=== PATIENT | male | born 1955 | race Two or more races ===

== ENCOUNTER 2021-10-01 05:23 | Inpatient (IN) | payer MEDICARE, MEDICAID ==
[~2021-10-01] VITALS: Ht 170.2 cm; Wt 65.2 kg
[2021-10-01 05:45] LABS: Basophils # (auto) 0.1 10 ^3/uL (0-0.2); Monocytes # (auto) 0.9 10 ^3/uL (0-1.3); Monocytes % (auto) 5.5 % (0.0-12.0)
[2021-10-01] MEDS ORDERED: NITROGLYCERIN 2% OINT 1GM PKG TD ONE (05:45)
[2021-10-01] MEDS ORDERED: ALBUTEROL SULF 2.5 MG/0.5ML(0.5%) NEB SOLN NEB ONE ×2 (05:45→06:15)
[2021-10-01] MEDS ORDERED: FUROSEMIDE 100 MG/10ML VIAL IV ONE (05:45)
[2021-10-01] MEDS ORDERED: methylPREDNISolone SOD SUCC 125 MG/2 ML VL IV ONE (05:45)
[2021-10-01 05:46] LABS: Basophils % (auto) 0.6 % (0.0-2.0); Eosinophils # (auto) 1.1 10 ^3/uL (0-0.8); Hematocrit 52.6 % (41.0-53.0); Hemoglobin 17.7 g/dL (13.5-17.5); Lymphocytes # (auto) 2.8 10 ^3/uL (0.4-5.4); Lymphocytes % (auto) 18.3 % (10.0-50.0); Mean Corpuscular Hemoglobin 28.8 pg (28.0-32.0); Mean Corpuscular Hgb Conc. 33.6 g/dL (32.0-36.0); Mean Corpuscular Volume 85.7 fL (80.0-100.0); Neutrophils # (auto) 10.6 10 ^3/uL (1.6-8.6); Neutrophils % (auto) 68.6 % (37.0-80.0); Nucleated Red Blood Cells % 0.1 %; Red Blood Cells 6.13 10^6/uL (4.5-5.90); Red Cell Distribution Width 16.4 % (11.8-14.3); White Blood Cell 15.5 10^3/uL (4.4-10.8)
[2021-10-01 06:04] LABS: Albumin 4.3 g/dL (3.4-5.0); Calcium 9.6 mg/dL (8.5-10.1); INR 0.97 (0.9-1.15); Magnesium 2.6 mg/dL (1.6-2.6); Partial Thromboplastin Time 24.7 sec (23.6-33.0); Potassium 4.6 mmol/L (3.5-5.1)
[2021-10-01 06:07] LABS: BUN/Creatinine Ratio 9.8; Bilirubin, Total 0.4 mg/dL (0.2-1.0); Total Protein 8.1 g/dL (6.4-8.2)
[2021-10-01] MEDS ORDERED: AZITHROMYCIN 500MG/ 250ML 250 ML IV ONE (06:45)
[2021-10-01 07:22] VITALS: BP 157/95
[2021-10-01 08:07] VITALS: BP 157/95
[2021-10-01] MEDS ORDERED: NITROGLYCERIN 0.4 MG SL TAB SL PRN (10:00)
[2021-10-01] MEDS ORDERED: SODIUM CHLORIDE 0.9% 1,000 ML IV ONE ×2 (10:00)
[2021-10-01] MEDS ORDERED: MORPHINE SULFATE INJECTION 2 MG/ML SYRG IV PRN ×2 (10:00)
[2021-10-01] MEDS ORDERED: cefTRIAXone 1GM/50ML D5W 50 ML IV ONE ×2 (10:00→16:15)
[2021-10-01] MEDS ORDERED: IPRATROPIUM BROM 0.5 MG/2.5ML INH SOL NEB PRN ×2 (10:00→12:30)
[2021-10-01] MEDS ORDERED: ALBUTEROL SULF 2.5 MG/0.5ML(0.5%) NEB SOLN NEB PRN ×2 (10:00→12:30)
[2021-10-01] MEDS ORDERED: ONDANSETRON HCL 4 MG/2 ML VIAL IV PRN (10:00)
[2021-10-01] MEDS ORDERED: hydrALAZINE HCL 20 MG/ML VL IV PRN (10:00)
[2021-10-01 10:33] LABS: Alcohol, Urine < 3.0 mg/dL (0-10); Amphetamine Screen, Urine NEGATIVE (NEGATIVE); Barbiturate Scree,Urine NEGATIVE (NEGATIVE); Benzodiazephine Screen, Urine NEGATIVE (NEGATIVE); Cannabinoid Screen, Urine NEGATIVE (NEGATIVE); Cocaine Screen, Urine NEGATIVE (NEGATIVE); Opiate Scree,Urine NEGATIVE (NEGATIVE); Phencyclidine Screen, Urine NEGATIVE (NEGATIVE)
[2021-10-01 10:50] LABS: Urine Bacteria NONE SEEN /hpf (None Seen); Urine Blood 1+ /uL (Negative); Urine Specific Gravity 1.012 (1.001-1.035); Urine WBC 1 /hpf (0 - 3)
[2021-10-01 12:00] VITALS: BP 121/81
[2021-10-01] MEDS ORDERED: FUROSEMIDE 40 MG/4 ML VIAL IV ONE (12:15)
[2021-10-01 12:24] LABS: Cholesterol 208 mg/dL (< 200); Triglycerides 72 mg/dL (< 150)
[2021-10-01 12:26] LABS: HDL Cholesterol 90 mg/dL (40-59); LDL Cholesterol 96 mg/dL (< 100)
[2021-10-01] MEDS ORDERED: APIX5TAB PO (12:46)
[2021-10-01] MEDS ORDERED: ALBUTEROL SULF 2.5 MG/0.5ML(0.5%) NEB SOLN ONE (12:52)
[2021-10-01] MEDS ORDERED: IPRATROPIUM BROM 0.5 MG/2.5ML INH SOL ONE (12:52)
[2021-10-01 13:00] VITALS: BP 129/80
[2021-10-01] MEDS: ENOXAPARIN SOD 40 MG/0.4 ML SYRINGE SC SCH (15:48)
[2021-10-01] MEDS: NICOTINE 14 MG/24HR TOPICAL PATCH TD SCH (15:54)
[2021-10-01 17:00] VITALS: BP 120/82
[2021-10-01] MEDS ORDERED: BUDESONIDE (INHALATION) 0.5 MG/2 ML NEB NEB ONE (17:00)
[2021-10-01] MEDS ORDERED: LORazepam 2MG/ML-1ML VIAL IV PRN (17:00)
[2021-10-01] MEDS: ALBUTEROL SULF 2.5 MG/0.5ML(0.5%) NEB SOLN NEB PRN ×2 (17:55→22:10)
[2021-10-01] MEDS: IPRATROPIUM BROM 0.5 MG/2.5ML INH SOL NEB PRN ×2 (17:55→22:10)
[2021-10-01] MEDS: methylPREDNISolone SOD SUCC 40 MG/ML VL IV SCH (21:56)
[2021-10-01 22:00] VITALS: BP 135/75
[2021-10-02 05:00] VITALS: BP 119/71
[2021-10-02] MEDS: ALBUTEROL SULF 2.5 MG/0.5ML(0.5%) NEB SOLN NEB PRN ×3 (06:12→22:13)
[2021-10-02] MEDS: BUDESONIDE (INHALATION) 0.5 MG/2 ML NEB NEB SCH ×2 (06:13→22:12)
[2021-10-02] MEDS: IPRATROPIUM BROM 0.5 MG/2.5ML INH SOL NEB PRN ×3 (06:13→22:13)
[2021-10-02 08:30] VITALS: BP 125/78
[2021-10-02 09:00] VITALS: BP 125/78
[2021-10-02 09:18] LABS: Basophils # (auto) 0 10 ^3/uL (0-0.2); Basophils % (auto) 0.2 % (0.0-2.0); Eosinophils # (auto) 0 10 ^3/uL (0-0.8); Hematocrit 49.2 % (41.0-53.0); Lymphocytes # (auto) 0.8 10 ^3/uL (0.4-5.4); Mean Corpuscular Hemoglobin 27.5 pg (28.0-32.0); Mean Corpuscular Hgb Conc. 32.5 g/dL (32.0-36.0); Mean Corpuscular Volume 84.4 fL (80.0-100.0); Monocytes # (auto) 0.9 10 ^3/uL (0-1.3); Monocytes % (auto) 4.6 % (0.0-12.0); Neutrophils # (auto) 17.6 10 ^3/uL (1.6-8.6); Neutrophils % (auto) 91.2 % (37.0-80.0); Nucleated Red Blood Cells % 0.1 %; Red Blood Cells 5.83 10^6/uL (4.5-5.90); White Blood Cell 19.3 10^3/uL (4.4-10.8)
[2021-10-02 09:41] LABS: Potassium 4.4 mmol/L (3.5-5.1)
[2021-10-02 09:48] LABS: Albumin 3.4 g/dL (3.4-5.0); BUN/Creatinine Ratio 12.7; Bilirubin, Total 0.3 mg/dL (0.2-1.0)
[2021-10-02] MEDS: ENOXAPARIN SOD 40 MG/0.4 ML SYRINGE SC SCH (09:51)
[2021-10-02] MEDS: NICOTINE 14 MG/24HR TOPICAL PATCH TD SCH (09:56)
[2021-10-02] MEDS: cefTRIAXone 1GM/50ML D5W 50 ML IV SCH (09:57)
[2021-10-02] MEDS: methylPREDNISolone SOD SUCC 40 MG/ML VL IV SCH ×2 (09:57→22:29)
[2021-10-02] MEDS: AZITHROMYCIN 500MG/ 250ML 250 ML IV SCH (10:39)
[2021-10-02] MEDS ORDERED: FUROSEMIDE 20 MG/2 ML VIAL IV ONE (12:45)
[2021-10-02 12:55] VITALS: BP 115/76
[2021-10-02 17:00] VITALS: BP 142/72
[2021-10-02 22:00] VITALS: BP 119/75
[2021-10-03 05:00] VITALS: BP 133/87
[2021-10-03 05:55] LABS: Basophils # (auto) 0 10 ^3/uL (0-0.2); Basophils % (auto) 0.1 % (0.0-2.0); Eosinophils # (auto) 0 10 ^3/uL (0-0.8); Hematocrit 49.4 % (41.0-53.0); Hemoglobin 16.4 g/dL (13.5-17.5); Lymphocytes # (auto) 0.6 10 ^3/uL (0.4-5.4); Lymphocytes % (auto) 3.5 % (10.0-50.0); Mean Corpuscular Hemoglobin 28.1 pg (28.0-32.0); Mean Corpuscular Hgb Conc. 33.3 g/dL (32.0-36.0); Mean Corpuscular Volume 84.5 fL (80.0-100.0); Monocytes # (auto) 0.4 10 ^3/uL (0-1.3); Monocytes % (auto) 2.3 % (0.0-12.0); Neutrophils # (auto) 14.8 10 ^3/uL (1.6-8.6); Neutrophils % (auto) 94.1 % (37.0-80.0); Nucleated Red Blood Cells % 0.1 %; Red Blood Cells 5.84 10^6/uL (4.5-5.90); White Blood Cell 15.7 10^3/uL (4.4-10.8)
[2021-10-03 06:15] LABS: Potassium 4.5 mmol/L (3.5-5.1)
[2021-10-03 06:27] LABS: BUN/Creatinine Ratio 16.9; Calcium 9.2 mg/dL (8.5-10.1)
[2021-10-03] MEDS: IPRATROPIUM BROM 0.5 MG/2.5ML INH SOL NEB PRN ×2 (08:58→19:06)
[2021-10-03] MEDS: BUDESONIDE (INHALATION) 0.5 MG/2 ML NEB NEB SCH ×2 (08:58→19:06)
[2021-10-03] MEDS: ALBUTEROL SULF 2.5 MG/0.5ML(0.5%) NEB SOLN NEB PRN (08:58)
[2021-10-03 09:00] VITALS: BP 129/78
[2021-10-03] MEDS: ENOXAPARIN SOD 40 MG/0.4 ML SYRINGE SC SCH (10:22)
[2021-10-03] MEDS: AZITHROMYCIN 500MG/ 250ML 250 ML IV SCH (10:23)
[2021-10-03] MEDS: methylPREDNISolone SOD SUCC 40 MG/ML VL IV SCH ×2 (10:23→21:50)
[2021-10-03] MEDS: cefTRIAXone 1GM/50ML D5W 50 ML IV SCH (10:23)
[2021-10-03] MEDS: NICOTINE 14 MG/24HR TOPICAL PATCH TD SCH (10:24)
[2021-10-03 13:00] VITALS: BP 119/68
[2021-10-03 17:00] VITALS: BP 127/76
[2021-10-03 20:00] VITALS: BP 123/76
[2021-10-03 22:00] VITALS: BP 123/76
[2021-10-04] VITALS (7 sets, daily range): BP systolic 101–142; BP diastolic 61–86
[2021-10-04] MEDS: IPRATROPIUM BROM 0.5 MG/2.5ML INH SOL NEB PRN ×2 (03:49→22:29)
[2021-10-04] MEDS: ALBUTEROL SULF 2.5 MG/0.5ML(0.5%) NEB SOLN NEB PRN ×2 (03:49→22:29)
[2021-10-04] MEDS: AZITHROMYCIN 500MG/ 250ML 250 ML IV SCH (08:58)
[2021-10-04] MEDS: methylPREDNISolone SOD SUCC 40 MG/ML VL IV SCH (08:58)
[2021-10-04] MEDS: ENOXAPARIN SOD 40 MG/0.4 ML SYRINGE SC SCH (08:58)
[2021-10-04] MEDS: cefTRIAXone 1GM/50ML D5W 50 ML IV SCH (08:58)
[2021-10-04] MEDS: BUDESONIDE (INHALATION) 0.5 MG/2 ML NEB NEB SCH ×2 (09:54→22:29)
[2021-10-04] MEDS: NICOTINE 14 MG/24HR TOPICAL PATCH TD SCH (10:30)
[2021-10-05 05:26] VITALS: BP 146/74
[2021-10-05] MEDS: BUDESONIDE (INHALATION) 0.5 MG/2 ML NEB NEB SCH (06:00)
[2021-10-05 06:42] LABS: Basophils # (auto) 0 10 ^3/uL (0-0.2); Basophils % (auto) 0.3 % (0.0-2.0); Eosinophils # (auto) 0 10 ^3/uL (0-0.8); Eosinophils % (auto) 0.1 % (0.0-7.0); Hematocrit 45.2 % (41.0-53.0); Hemoglobin 15.2 g/dL (13.5-17.5); Lymphocytes # (auto) 1.6 10 ^3/uL (0.4-5.4); Lymphocytes % (auto) 11.1 % (10.0-50.0); Mean Corpuscular Hemoglobin 28.5 pg (28.0-32.0); Mean Corpuscular Hgb Conc. 33.7 g/dL (32.0-36.0); Mean Corpuscular Volume 84.7 fL (80.0-100.0); Monocytes # (auto) 1.2 10 ^3/uL (0-1.3); Monocytes % (auto) 8.6 % (0.0-12.0); Neutrophils # (auto) 11.4 10 ^3/uL (1.6-8.6); Neutrophils % (auto) 79.9 % (37.0-80.0); Nucleated Red Blood Cells % 0.1 %; Red Blood Cells 5.34 10^6/uL (4.5-5.90); Red Cell Distribution Width 15.9 % (11.8-14.3); White Blood Cell 14.3 10^3/uL (4.4-10.8)
[2021-10-05 07:02] LABS: BUN/Creatinine Ratio 15.9; Calcium 8.6 mg/dL (8.5-10.1); Potassium 3.9 mmol/L (3.5-5.1)
[2021-10-05 09:23] VITALS: BP 129/81
[2021-10-05] MEDS: AZITHROMYCIN 500MG/ 250ML 250 ML IV SCH (09:56)
[2021-10-05] MEDS: ENOXAPARIN SOD 40 MG/0.4 ML SYRINGE SC SCH (09:56)
[2021-10-05] MEDS: NICOTINE 14 MG/24HR TOPICAL PATCH TD SCH (09:58)
[2021-10-05] MEDS ORDERED: methylPREDNISolone SOD SUCC 40 MG/ML VL IV SCH (10:00)
[2021-10-05] MEDS ORDERED: PRED20TA2 PO (11:18)
[2021-10-05] MEDS ORDERED: ALB5IS NEB (11:18)
[2021-10-05 13:00] VITALS: BP 125/72
[2021-10-05 13:03] VITALS: BP 129/81
== END 2021-10-05 15:25 | disposition home or self-care (01) | DRG 140 ==
LOC: EDBD 05:23 → ER 05:23 → TELE-WESTW 09:59 → ER 11:20
PROVIDERS: ADMIT Registered Nurse; ATTEND Internal Medicine Pulmonary Disease
PROC: 5A09357 Assistance with Respiratory Ventilation, Less than 24 Consecutive Hours, Continuous Positive Airway Pressure (ICD-10-PCS; principal; 2021-10-01)
DX: J44.1 Chronic obstructive pulmonary disease with (acute) exacerbation (principal); J96.01 Acute respiratory failure with hypoxia; N17.9 Acute kidney failure, unspecified; F17.210 Nicotine dependence, cigarettes, uncomplicated; Z20.822 Contact with and (suspected) exposure to COVID-19
CPT/HCPCS: 36415; 36600; 71045; 71250; 80048; 80053; 80061; 80307; 81001; 82805; 83036; 83735; 83880; 84484; 85025; 85379; 85610; 85730; 87040; 87804; 93005; 94002; 94640; 94660; 96365; 96375; 97163; G0378; J0696

== ENCOUNTER 2021-12-31 15:05 | Emergency (ER) | payer MEDICARE, MEDICAID ==
[~2021-12-31] VITALS: Ht 165.1 cm; Wt 74.0 kg
[~2021-12-31 15:05] MED LIST: ALB5IS NEB; APIX5TAB PO; PRED20TA2 PO
[2021-12-31 15:56] LABS: Basophils # (auto) 0.1 10 ^3/uL (0-0.2); Eosinophils # (auto) 0.7 10 ^3/uL (0-0.8); Hemoglobin 15.4 g/dL (13.5-17.5); Nucleated Red Blood Cells % 0.1 %
[2021-12-31 16:01] LABS: Basophils % (auto) 0.5 % (0.0-2.0); Eosinophils % (auto) 6.2 % (0.0-7.0); Hematocrit 48.4 % (41.0-53.0); Lymphocytes # (auto) 1.6 10 ^3/uL (0.4-5.4); Lymphocytes % (auto) 14.9 % (10.0-50.0); Mean Corpuscular Hemoglobin 27.3 pg (28.0-32.0); Mean Corpuscular Hgb Conc. 31.9 g/dL (32.0-36.0); Mean Corpuscular Volume 85.5 fL (80.0-100.0); Monocytes # (auto) 0.9 10 ^3/uL (0-1.3); Neutrophils # (auto) 7.6 10 ^3/uL (1.6-8.6); Neutrophils % (auto) 70.4 % (37.0-80.0); Red Blood Cells 5.66 10^6/uL (4.5-5.90); Red Cell Distribution Width 16.8 % (11.8-14.3); White Blood Cell 10.8 10^3/uL (4.4-10.8)
[2021-12-31] MEDS ORDERED: ALBUTEROL SULF 2.5 MG/0.5ML(0.5%) NEB SOLN NEB ONE (16:15)
[2021-12-31] MEDS ORDERED: IPRATROPIUM BROM 0.5 MG/2.5ML INH SOL NEB ONE (16:15)
[2021-12-31] MEDS ORDERED: methylPREDNISolone SOD SUCC 125 MG/2 ML VL IV ONE (16:15)
[2021-12-31 16:23] LABS: Albumin 3.5 g/dL (3.4-5.0); BUN/Creatinine Ratio 7.9; Calcium 8.9 mg/dL (8.5-10.1); Potassium 4.9 mmol/L (3.5-5.1)
[2021-12-31 16:26] LABS: Bilirubin, Total 0.3 mg/dL (0.2-1.0); Total Protein 6.7 g/dL (6.4-8.2)
[2021-12-31] MEDS ORDERED: RESPMIS2 XX (17:36)
[2021-12-31] MEDS ORDERED: PRED20TA2 PO (17:36)
[2021-12-31] MEDS ORDERED: IPRA0.00 IN (17:37)
[2021-12-31 17:51] VITALS: BP 154/83
== END 2021-12-31 17:58 | disposition home or self-care (01) ==
LOC: ER 15:05 → EDBD 15:05 → ER 17:58
DX: J44.1 Chronic obstructive pulmonary disease with (acute) exacerbation (principal); Z20.822 Contact with and (suspected) exposure to COVID-19
CPT/HCPCS: 36415; 71045; 80053; 83880; 84484; 85025; 87426; 93005; 96374; 99285; J2930; J7644

== ENCOUNTER 2022-02-15 00:40 | Emergency (ER) | payer MEDICARE, MEDICAID ==
[~2022-02-15] VITALS: Ht 162.6 cm; Wt 63.5 kg
[~2022-02-15 00:40] MED LIST changes: +IPRA0.00 IN; +RESPMIS2 XX
[2022-02-15] MEDS ORDERED: ALBUTEROL SULF 2.5 MG/0.5ML(0.5%) NEB SOLN NEB ONE ×2 (00:45→03:45)
[2022-02-15] MEDS ORDERED: methylPREDNISolone SOD SUCC 125 MG/2 ML VL IV ONE (00:45)
[2022-02-15 01:26] LABS: INR 0.95 (0.9-1.15); Partial Thromboplastin Time 24.4 sec (24.6-33.4)
[2022-02-15 01:28] LABS: Albumin 3.8 g/dL (3.4-5.0); BUN/Creatinine Ratio 10.2; Calcium 9.1 mg/dL (8.5-10.1); Magnesium 2.5 mg/dL (1.6-2.6); Potassium 4.9 mmol/L (3.5-5.1)
[2022-02-15 01:31] LABS: Bilirubin, Total 0.4 mg/dL (0.2-1.0); Total Protein 7.5 g/dL (6.4-8.2)
[2022-02-15 01:59] LABS: Basophils # (auto) 0.1 10 ^3/uL (0-0.2); Basophils % (auto) 0.7 % (0.0-2.0); Eosinophils # (auto) 0.8 10 ^3/uL (0-0.8); Eosinophils % (auto) 8.5 % (0.0-7.0); Hematocrit 50.6 % (41.0-53.0); Hemoglobin 16.3 g/dL (13.5-17.5); Lymphocytes # (auto) 2.3 10 ^3/uL (0.4-5.4); Lymphocytes % (auto) 23.5 % (10.0-50.0); Mean Corpuscular Hemoglobin 27.5 pg (28.0-32.0); Mean Corpuscular Hgb Conc. 32.3 g/dL (32.0-36.0); Mean Corpuscular Volume 85.3 fL (80.0-100.0); Monocytes % (auto) 10.2 % (0.0-12.0); Neutrophils # (auto) 5.5 10 ^3/uL (1.6-8.6); Neutrophils % (auto) 57.1 % (37.0-80.0); Nucleated Red Blood Cells % 0.1 %; Red Blood Cells 5.92 10^6/uL (4.5-5.90); Red Cell Distribution Width 16.1 % (11.8-14.3); White Blood Cell 9.6 10^3/uL (4.4-10.8)
[2022-02-15] MEDS ORDERED: IPRATROPIUM BROM 0.5 MG/2.5ML INH SOL NEB ONE (03:45)
[2022-02-15] MEDS ORDERED: MAGNESIUM SULFATE 1GM/100ML 100 ML IV ONE (03:45)
[2022-02-15 05:03] VITALS: BP 113/54
[2022-02-15] MEDS ORDERED: PRED1PAK9 PO (05:06)
[2022-02-15] MEDS ORDERED: ALBU0.084 NEB (05:08)
== END 2022-02-15 06:55 | disposition home or self-care (01) ==
LOC: ER 00:40 → EDBD 00:40 → ER 06:55
DX: J44.1 Chronic obstructive pulmonary disease with (acute) exacerbation (principal); I10 Essential (primary) hypertension; F17.210 Nicotine dependence, cigarettes, uncomplicated
CPT/HCPCS: 36415; 71045; 80053; 83735; 83880; 84484; 85025; 85379; 85610; 85730; 93005; 94640; 94644; 96365; 96375; 99285; J2930; J3475; J7644

== ENCOUNTER 2022-03-07 07:09 | Emergency (ER) | payer MEDICARE, MEDICAID ==
[~2022-03-07] VITALS: Ht 165.1 cm; Wt 81.1 kg
[~2022-03-07 07:09] MED LIST changes: +ALBU0.084 NEB; +PRED1PAK9 PO
[2022-03-07 07:18] VITALS: BP 126/80
[2022-03-07] MEDS ORDERED: IPRATROPIUM BROM 0.5 MG/2.5ML INH SOL NEB ONE (08:45)
[2022-03-07] MEDS ORDERED: ALBUTEROL SULF 2.5 MG/0.5ML(0.5%) NEB SOLN NEB ONE (08:45)
[2022-03-07] MEDS ORDERED: methylPREDNISolone SOD SUCC 125 MG/2 ML VL IV ONE (08:45)
[2022-03-07 09:47] LABS: Basophils # (auto) 0.1 10 ^3/uL (0-0.2); Eosinophils # (auto) 0.5 10 ^3/uL (0-0.8); Hemoglobin 16.9 g/dL (13.5-17.5); Monocytes # (auto) 0.6 10 ^3/uL (0-1.3); Neutrophils % (auto) 79.7 % (37.0-80.0)
[2022-03-07 09:48] LABS: Basophils % (auto) 0.7 % (0.0-2.0); Eosinophils % (auto) 4.6 % (0.0-7.0); Hematocrit 52.3 % (41.0-53.0); Lymphocytes # (auto) 1.1 10 ^3/uL (0.4-5.4); Lymphocytes % (auto) 9.6 % (10.0-50.0); Mean Corpuscular Hemoglobin 27.6 pg (28.0-32.0); Mean Corpuscular Hgb Conc. 32.2 g/dL (32.0-36.0); Mean Corpuscular Volume 85.6 fL (80.0-100.0); Monocytes % (auto) 5.4 % (0.0-12.0); Neutrophils # (auto) 8.9 10 ^3/uL (1.6-8.6); Nucleated Red Blood Cells % 0.3 %; Red Blood Cells 6.12 10^6/uL (4.5-5.90); Red Cell Distribution Width 15.7 % (11.8-14.3); White Blood Cell 11.1 10^3/uL (4.4-10.8)
[2022-03-07 10:22] LABS: Alanine Aminotransferase 24 U/L (16-61); Alkaline Phosphatase 129 U/L (45-117); Anion Gap 10 (5-15); Aspartate Aminotransferase 20 U/L (15-37); BUN/Creatinine Ratio 10.1; Blood Urea Nitrogen 11 mg/dL (7-18); Carbon Dioxide 20 mmol/L (21-32); Chloride 112 mmol/L (98-107); GFR African American 87 mL/min; GFR Non-African American 72 mL/min; Glucose 80 mg/dL (74-106); Potassium 4.2 mmol/L (3.5-5.1); Sodium 142 mmol/L (136-145)
[2022-03-07 10:23] LABS: Albumin 3.8 g/dL (3.4-5.0); Bilirubin, Total 0.5 mg/dL (0.2-1.0); Total Protein 7.7 g/dL (6.4-8.2)
== END 2022-03-07 17:03 | disposition left against medical advice (07) ==
LOC: EDBD 07:09 → ER 07:09
DX: J44.1 Chronic obstructive pulmonary disease with (acute) exacerbation (principal); F17.210 Nicotine dependence, cigarettes, uncomplicated; I10 Essential (primary) hypertension; Z53.29 Procedure and treatment not carried out because of patient's decision for other reasons
CPT/HCPCS: 36415; 71045; 80053; 84484; 85025; 85379; 93005; 94640; 99285; J7644

== ENCOUNTER 2022-03-15 00:45 | Inpatient (IN) | payer MEDICARE, MEDICAID ==
[~2022-03-15] VITALS: Ht 172.7 cm; Wt 69.2 kg
[2022-03-15] MEDS ORDERED: TERBUTALINE SULFATE 1 MG/ML 1ML VIAL SC ONE (01:15)
[2022-03-15] MEDS ORDERED: methylPREDNISolone SOD SUCC 125 MG/2 ML VL IV ONE (01:15)
[2022-03-15] MEDS: MAGNESIUM SULFATE 1GM/100ML 100 ML IV SCH ×2 (01:43→02:38)
[2022-03-15 01:46] LABS: Basophils # (auto) 0.1 10 ^3/uL (0-0.2); Basophils % (auto) 1.2 % (0.0-2.0); Eosinophils # (auto) 0.8 10 ^3/uL (0-0.8); Eosinophils % (auto) 9.4 % (0.0-7.0); Hematocrit 48.3 % (41.0-53.0); Hemoglobin 15.9 g/dL (13.5-17.5); Lymphocytes % (auto) 22.8 % (10.0-50.0); Mean Corpuscular Hemoglobin 28.2 pg (28.0-32.0); Mean Corpuscular Hgb Conc. 32.8 g/dL (32.0-36.0); Mean Corpuscular Volume 85.9 fL (80.0-100.0); Monocytes # (auto) 0.8 10 ^3/uL (0-1.3); Monocytes % (auto) 8.7 % (0.0-12.0); Neutrophils % (auto) 57.9 % (37.0-80.0); Nucleated Red Blood Cells % 0.1 %; Red Blood Cells 5.62 10^6/uL (4.5-5.90); Red Cell Distribution Width 15.6 % (11.8-14.3); White Blood Cell 8.7 10^3/uL (4.4-10.8)
[2022-03-15 02:01] LABS: INR 0.99 (0.9-1.15); Partial Thromboplastin Time 26.9 sec (24.6-33.4)
[2022-03-15 02:02] LABS: Albumin 3.5 g/dL (3.4-5.0); BUN/Creatinine Ratio 8.9; Calcium 8.5 mg/dL (8.5-10.1); Magnesium 1.9 mg/dL (1.6-2.6); Potassium 4.5 mmol/L (3.5-5.1)
[2022-03-15 02:04] LABS: Bilirubin, Total 0.4 mg/dL (0.2-1.0); Total Protein 6.7 g/dL (6.4-8.2)
[2022-03-15 02:41] LABS: Urine Bacteria NONE SEEN /hpf (None Seen); Urine Blood Negative /uL (Negative); Urine Specific Gravity 1.018 (1.001-1.035); Urine WBC 1 /hpf (0 - 3)
[2022-03-15] MEDS ORDERED: cefTRIAXone 1GM/50ML D5W 50 ML IV ONE (04:00)
[2022-03-15] MEDS ORDERED: ONDANSETRON HCL 4 MG/2 ML VIAL IV PRN (07:00)
[2022-03-15] MEDS ORDERED: ACETAMINOPHEN 325 MG TAB PO PRN (07:00)
[2022-03-15] MEDS ORDERED: NITROGLYCERIN 0.4 MG SL TAB SL PRN (07:00)
[2022-03-15] MEDS ORDERED: MORPHINE SULFATE INJ 2 MG/ml SYRG IV PRN (07:00)
[2022-03-15] MEDS: ALBUTEROL SULF 2.5 MG/0.5ML(0.5%) NEB SOLN NEB PRN ×3 (08:25→19:56)
[2022-03-15] MEDS ORDERED: PANTOPRAZOLE 40 MG TAB PO SCH (10:00)
[2022-03-15] MEDS: ENOXAPARIN SOD 40 MG/0.4 ML SYRINGE SC SCH (10:26)
[2022-03-15] MEDS: cefTRIAXone 1GM/50ML D5W 50 ML IV SCH (10:26)
[2022-03-15] MEDS: methylPREDNISolone SOD SUCC 125 MG/2 ML VL IV SCH ×2 (10:27→22:35)
[2022-03-15] MEDS: amLODIPine BESYLATE 5 MG TAB PO SCH (10:28)
[2022-03-15] MEDS: MEMANTINE HCL 5 MG TAB PO SCH ×2 (10:28→22:35)
[2022-03-15 11:03] VITALS: BP 131/77
[2022-03-15] MEDS: IPRATROPIUM BROM 0.5 MG/2.5ML INH SOL NEB SCH ×2 (11:46→19:56)
[2022-03-15] MEDS: AZITHROMYCIN 500MG/ 250ML 250 ML IV SCH (12:44)
[2022-03-15 13:55] LABS: Amphetamine Screen, Urine NEGATIVE (NEGATIVE); Barbiturate Scree,Urine NEGATIVE (NEGATIVE); Benzodiazephine Screen, Urine NEGATIVE (NEGATIVE); Cannabinoid Screen, Urine NEGATIVE (NEGATIVE); Cocaine Screen, Urine NEGATIVE (NEGATIVE); Opiate Scree,Urine NEGATIVE (NEGATIVE); Phencyclidine Screen, Urine NEGATIVE (NEGATIVE)
[2022-03-15 22:00] VITALS: BP 140/81
[2022-03-15] MEDS ORDERED: AMLO-496 PO (23:21)
[2022-03-16] MEDS: IPRATROPIUM BROM 0.5 MG/2.5ML INH SOL NEB SCH ×4 (02:06→18:15)
[2022-03-16] MEDS: ALBUTEROL SULF 2.5 MG/0.5ML(0.5%) NEB SOLN NEB PRN ×3 (02:06→18:15)
[2022-03-16 05:00] VITALS: BP 140/70
[2022-03-16 06:52] LABS: Basophils # (auto) 0 10 ^3/uL (0-0.2); Basophils % (auto) 0.2 % (0.0-2.0); Eosinophils # (auto) 0 10 ^3/uL (0-0.8); Eosinophils % (auto) 0.1 % (0.0-7.0); Hematocrit 47.4 % (41.0-53.0); Hemoglobin 15.3 g/dL (13.5-17.5); Lymphocytes # (auto) 0.9 10 ^3/uL (0.4-5.4); Lymphocytes % (auto) 6.6 % (10.0-50.0); Mean Corpuscular Hemoglobin 27.6 pg (28.0-32.0); Mean Corpuscular Hgb Conc. 32.4 g/dL (32.0-36.0); Mean Corpuscular Volume 85.1 fL (80.0-100.0); Monocytes # (auto) 0.4 10 ^3/uL (0-1.3); Monocytes % (auto) 2.9 % (0.0-12.0); Neutrophils # (auto) 12.9 10 ^3/uL (1.6-8.6); Neutrophils % (auto) 90.2 % (37.0-80.0); Nucleated Red Blood Cells % 0.2 %; Red Blood Cells 5.57 10^6/uL (4.5-5.90); Red Cell Distribution Width 15.2 % (11.8-14.3); White Blood Cell 14.3 10^3/uL (4.4-10.8)
[2022-03-16 07:08] LABS: Albumin 3.3 g/dL (3.4-5.0); BUN/Creatinine Ratio 11.3; Calcium 9.3 mg/dL (8.5-10.1); Potassium 4.9 mmol/L (3.5-5.1)
[2022-03-16 07:26] LABS: Bilirubin, Total 0.3 mg/dL (0.2-1.0); Total Protein 6.3 g/dL (6.4-8.2)
[2022-03-16] MEDS: AZITHROMYCIN 500MG/ 250ML 250 ML IV SCH (08:36)
[2022-03-16] MEDS: MEMANTINE HCL 5 MG TAB PO SCH ×2 (08:37→21:17)
[2022-03-16] MEDS: methylPREDNISolone SOD SUCC 125 MG/2 ML VL IV SCH ×2 (08:37→21:17)
[2022-03-16] MEDS: cefTRIAXone 1GM/50ML D5W 50 ML IV SCH (08:37)
[2022-03-16] MEDS: ENOXAPARIN SOD 40 MG/0.4 ML SYRINGE SC SCH (08:38)
[2022-03-16] MEDS: amLODIPine BESYLATE 5 MG TAB PO SCH (08:43)
[2022-03-16] MEDS: NICOTINE 7MG/24HR TOPICAL PATCH TD SCH (08:43)
[2022-03-16 09:00] VITALS: BP 123/75
[2022-03-16 13:00] VITALS: BP 121/73
[2022-03-16 17:00] VITALS: BP 127/69
[2022-03-16 22:00] VITALS: BP 152/89
[2022-03-17 05:00] VITALS: BP 138/81
[2022-03-17] MEDS: ALBUTEROL SULF 2.5 MG/0.5ML(0.5%) NEB SOLN NEB PRN ×2 (05:45→13:49)
[2022-03-17] MEDS: IPRATROPIUM BROM 0.5 MG/2.5ML INH SOL NEB SCH ×2 (05:45→13:49)
[2022-03-17 07:34] VITALS: BP 154/83
[2022-03-17] MEDS: cefTRIAXone 1GM/50ML D5W 50 ML IV SCH (08:46)
[2022-03-17] MEDS: methylPREDNISolone SOD SUCC 125 MG/2 ML VL IV SCH (09:11)
[2022-03-17] MEDS: NICOTINE 7MG/24HR TOPICAL PATCH TD SCH (09:12)
[2022-03-17] MEDS: MEMANTINE HCL 5 MG TAB PO SCH (09:12)
[2022-03-17] MEDS: ENOXAPARIN SOD 40 MG/0.4 ML SYRINGE SC SCH (09:13)
[2022-03-17] MEDS: amLODIPine BESYLATE 5 MG TAB PO SCH (09:14)
[2022-03-17] MEDS: AZITHROMYCIN 500MG/ 250ML 250 ML IV SCH (10:00)
[2022-03-17 12:16] VITALS: BP 131/74
[2022-03-17 16:44] VITALS: BP 131/74
[2022-03-17 17:28] VITALS: BP 127/78
== END 2022-03-17 17:40 | disposition home or self-care (01) | DRG 140 ==
LOC: EDBD 00:45 → ER 00:47 → TELE 06:49 → TELE-EAST 22:04
PROVIDERS: ADMIT Nurse Practitioner; ATTEND Internal Medicine
DX: J44.1 Chronic obstructive pulmonary disease with (acute) exacerbation (principal); J96.01 Acute respiratory failure with hypoxia; F03.A0 Unspecified dementia, mild, without behavioral disturbance, psychotic disturbance, mood disturbance, and anxiety; J20.9 Acute bronchitis, unspecified; J44.0 Chronic obstructive pulmonary disease with (acute) lower respiratory infection; F17.210 Nicotine dependence, cigarettes, uncomplicated; I10 Essential (primary) hypertension; Z20.822 Contact with and (suspected) exposure to COVID-19
CPT/HCPCS: 36415; 71045; 80053; 80307; 81001; 83036; 83735; 83880; 84443; 84484; 85025; 85610; 85730; 93005; 94640; 96365; 96367; 96375; G0378; J0696

== ENCOUNTER 2022-05-17 08:23 | Inpatient (IN) | payer MEDICARE, MEDICAID ==
[~2022-05-17] VITALS: Ht 165.1 cm; Wt 98.6 kg
[~2022-05-17 08:23] MED LIST changes: +AMLO-496 PO
[2022-05-17] MEDS ORDERED: IPRATROPIUM BROM 0.5 MG/2.5ML INH SOL NEB ONE (08:45)
[2022-05-17] MEDS ORDERED: ALBUTEROL SULF 2.5 MG/0.5ML(0.5%) NEB SOLN NEB ONE ×3 (08:45→14:00)
[2022-05-17] MEDS ORDERED: methylPREDNISolone SOD SUCC 125 MG/2 ML VL IV ONE (08:45)
[2022-05-17 10:32] LABS: Albumin 3.8 g/dL (3.4-5.0); Calcium 9.2 mg/dL (8.5-10.1); Potassium 4.5 mmol/L (3.5-5.1)
[2022-05-17 10:36] LABS: Basophils # (auto) 0.1 10 ^3/uL (0-0.2); Monocytes # (auto) 0.6 10 ^3/uL (0-1.3); Neutrophils % (auto) 66.6 % (37.0-80.0); Nucleated Red Blood Cells % 0.1 %
[2022-05-17 10:37] LABS: BUN/Creatinine Ratio 10.3; Bilirubin, Total 0.5 mg/dL (0.2-1.0)
[2022-05-17 10:38] LABS: Basophils % (auto) 1.1 % (0.0-2.0); Eosinophils # (auto) 0.7 10 ^3/uL (0-0.8); Eosinophils % (auto) 7.9 % (0.0-7.0); Hematocrit 51.8 % (41.0-53.0); Hemoglobin 16.9 g/dL (13.5-17.5); Lymphocytes # (auto) 1.4 10 ^3/uL (0.4-5.4); Lymphocytes % (auto) 17.3 % (10.0-50.0); Mean Corpuscular Hemoglobin 27.6 pg (28.0-32.0); Mean Corpuscular Hgb Conc. 32.6 g/dL (32.0-36.0); Mean Corpuscular Volume 84.5 fL (80.0-100.0); Monocytes % (auto) 7.1 % (0.0-12.0); Neutrophils # (auto) 5.6 10 ^3/uL (1.6-8.6); Red Blood Cells 6.12 10^6/uL (4.5-5.90); Red Cell Distribution Width 15.9 % (11.8-14.3); White Blood Cell 8.4 10^3/uL (4.4-10.8)
[2022-05-17] MEDS ORDERED: MIDAZOLAM HCL 5 MG/ML-1ML VIAL ONE (13:49)
[2022-05-17] MEDS ORDERED: ETOMIDATE (2MG/ML) 20ML VIAL IV ONE ×2 (13:50→14:00)
[2022-05-17] MEDS ORDERED: SUCCINYLCHOLINE CHLORIDE 20 MG/ML 10ML VIAL IV ONE ×2 (13:50→14:00)
[2022-05-17] MEDS ORDERED: MIDAZOLAM DRIP 50 mg/50mL 0 ML IV ONE (13:51)
[2022-05-17] MEDS ORDERED: MAGNESIUM SULFATE 1GM/100ML 100 ML IV ONE (14:00)
[2022-05-17] MEDS ORDERED: AZITHROMYCIN 500MG/ 250ML 250 ML IV ONE (14:00)
[2022-05-17] MEDS ORDERED: cefTRIAXone 1GM/50ML D5W 50 ML IV ONE (14:00)
[2022-05-17] MEDS ORDERED: ACETAMINOPHEN 325 MG TAB PO PRN (14:30)
[2022-05-17] MEDS ORDERED: MORPHINE SULFATE INJ 2 MG/ml SYRG IV PRN ×2 (14:30)
[2022-05-17] MEDS ORDERED: NITROGLYCERIN 0.4 MG SL TAB SL PRN (14:30)
[2022-05-17] MEDS ORDERED: HYDROcodone-ACET 5/325MG TAB PO PRN (14:30)
[2022-05-17] MEDS ORDERED: NICOTINE 14 MG/24HR TOPICAL PATCH TD ONE (14:45)
[2022-05-17] MEDS ORDERED: FUROSEMIDE 20 MG/2 ML VIAL IV ONE (15:00)
[2022-05-17 15:17] VITALS: BP 138/98
[2022-05-17 16:57] LABS: Cholesterol 221 mg/dL (< 200); HDL Cholesterol 73 mg/dL (40-59); LDL Cholesterol 134 mg/dL (< 100); Triglycerides 101 mg/dL (< 150)
[2022-05-17 17:23] LABS: INR 0.98 (0.9-1.15)
[2022-05-17] MEDS: ALBUTEROL SULF 2.5 MG/0.5ML(0.5%) NEB SOLN NEB SCH ×2 (19:20→22:08)
[2022-05-17] MEDS: IPRATROPIUM BROM 0.5 MG/2.5ML INH SOL NEB SCH ×2 (19:20→22:08)
[2022-05-17] MEDS: methylPREDNISolone SOD SUCC 125 MG/2 ML VL IV SCH (22:00)
[2022-05-18] MEDS: IPRATROPIUM BROM 0.5 MG/2.5ML INH SOL NEB SCH ×5 (05:59→22:23)
[2022-05-18] MEDS: ALBUTEROL SULF 2.5 MG/0.5ML(0.5%) NEB SOLN NEB SCH ×5 (05:59→22:23)
[2022-05-18 06:04] LABS: Basophils # (auto) 0 10 ^3/uL (0-0.2); Basophils % (auto) 0.1 % (0.0-2.0); Eosinophils # (auto) 0 10 ^3/uL (0-0.8); Hematocrit 47.1 % (41.0-53.0); Hemoglobin 15.4 g/dL (13.5-17.5); Lymphocytes # (auto) 0.8 10 ^3/uL (0.4-5.4); Mean Corpuscular Hemoglobin 27.4 pg (28.0-32.0); Mean Corpuscular Hgb Conc. 32.7 g/dL (32.0-36.0); Mean Corpuscular Volume 83.9 fL (80.0-100.0); Monocytes # (auto) 0.1 10 ^3/uL (0-1.3); Monocytes % (auto) 1.2 % (0.0-12.0); Neutrophils # (auto) 8.3 10 ^3/uL (1.6-8.6); Neutrophils % (auto) 89.7 % (37.0-80.0); Nucleated Red Blood Cells % 0.1 %; Red Blood Cells 5.62 10^6/uL (4.5-5.90); Red Cell Distribution Width 15.7 % (11.8-14.3); White Blood Cell 9.3 10^3/uL (4.4-10.8)
[2022-05-18 06:27] LABS: Albumin 3.3 g/dL (3.4-5.0); Calcium 9.1 mg/dL (8.5-10.1); Potassium 4.9 mmol/L (3.5-5.1)
[2022-05-18 06:33] LABS: BUN/Creatinine Ratio 9.3; Bilirubin, Total 0.4 mg/dL (0.2-1.0); Total Protein 6.6 g/dL (6.4-8.2)
[2022-05-18 06:59] LABS: Urine Bacteria NONE SEEN /hpf (None Seen); Urine Blood Negative /uL (Negative); Urine Specific Gravity 1.022 (1.001-1.035); Urine WBC 1 /hpf (0 - 3)
[2022-05-18 07:14] LABS: Alcohol, Urine < 3.0 mg/dL (0-10); Amphetamine Screen, Urine NEGATIVE (NEGATIVE); Barbiturate Scree,Urine NEGATIVE (NEGATIVE); Benzodiazephine Screen, Urine NEGATIVE (NEGATIVE); Cannabinoid Screen, Urine NEGATIVE (NEGATIVE); Cocaine Screen, Urine NEGATIVE (NEGATIVE); Opiate Scree,Urine NEGATIVE (NEGATIVE); Phencyclidine Screen, Urine NEGATIVE (NEGATIVE)
[2022-05-18] MEDS: cefTRIAXone 1GM/50ML D5W 50 ML IV SCH (09:54)
[2022-05-18] MEDS: ENOXAPARIN SOD 40 MG/0.4 ML SYRINGE SC SCH (09:55)
[2022-05-18] MEDS: NICOTINE 14 MG/24HR TOPICAL PATCH TD SCH (09:55)
[2022-05-18] MEDS ORDERED: ENOXAPARIN SOD 40 MG/0.4 ML SYRINGE SC SCH (10:00)
[2022-05-18] MEDS: AZITHROMYCIN 500MG/ 250ML 250 ML IV SCH (10:21)
[2022-05-18] MEDS: methylPREDNISolone SOD SUCC 125 MG/2 ML VL IV SCH ×2 (10:21→23:54)
[2022-05-18] MEDS ORDERED: VANCOMYCIN PER PHARMACY 0 MG IV SCH (13:15)
[2022-05-18] MEDS: VANCOMYCIN 1GM/250ML 250 ML IV SCH (16:25)
[2022-05-19 00:43] VITALS: BP 149/79
[2022-05-19] MEDS: VANCOMYCIN 1GM/250ML 250 ML IV SCH ×2 (02:55→15:13)
[2022-05-19 05:00] VITALS: BP 142/73
[2022-05-19 05:26] LABS: Basophils # (auto) 0 10 ^3/uL (0-0.2); Basophils % (auto) 0.2 % (0.0-2.0); Eosinophils # (auto) 0 10 ^3/uL (0-0.8); Eosinophils % (auto) 0.2 % (0.0-7.0); Hemoglobin 15.4 g/dL (13.5-17.5); Lymphocytes # (auto) 0.7 10 ^3/uL (0.4-5.4); Lymphocytes % (auto) 3.9 % (10.0-50.0); Mean Corpuscular Hgb Conc. 33.5 g/dL (32.0-36.0); Mean Corpuscular Volume 83.5 fL (80.0-100.0); Monocytes # (auto) 0.3 10 ^3/uL (0-1.3); Monocytes % (auto) 1.9 % (0.0-12.0); Neutrophils # (auto) 16.3 10 ^3/uL (1.6-8.6); Neutrophils % (auto) 93.8 % (37.0-80.0); Red Blood Cells 5.51 10^6/uL (4.5-5.90); Red Cell Distribution Width 15.8 % (11.8-14.3); White Blood Cell 17.4 10^3/uL (4.4-10.8)
[2022-05-19 05:38] LABS: Albumin 3.3 g/dL (3.4-5.0); Potassium 4.3 mmol/L (3.5-5.1)
[2022-05-19 05:41] LABS: BUN/Creatinine Ratio 13.9; Bilirubin, Total 0.3 mg/dL (0.2-1.0); Total Protein 6.7 g/dL (6.4-8.2)
[2022-05-19] MEDS: IPRATROPIUM BROM 0.5 MG/2.5ML INH SOL NEB SCH ×5 (07:01→23:11)
[2022-05-19] MEDS: ALBUTEROL SULF 2.5 MG/0.5ML(0.5%) NEB SOLN NEB SCH ×5 (07:01→23:11)
[2022-05-19] MEDS: AZITHROMYCIN 500MG/ 250ML 250 ML IV SCH (09:45)
[2022-05-19] MEDS: cefTRIAXone 1GM/50ML D5W 50 ML IV SCH (09:45)
[2022-05-19] MEDS: methylPREDNISolone SOD SUCC 125 MG/2 ML VL IV SCH ×2 (09:45→21:18)
[2022-05-19] MEDS: ENOXAPARIN SOD 40 MG/0.4 ML SYRINGE SC SCH (09:45)
[2022-05-19] MEDS: NICOTINE 14 MG/24HR TOPICAL PATCH TD SCH (09:46)
[2022-05-19 13:00] VITALS: BP 140/86
[2022-05-19 17:00] VITALS: BP 125/77
[2022-05-20] MEDS: VANCOMYCIN 1GM/250ML 250 ML IV SCH ×3 (03:04→23:12)
[2022-05-20 05:00] VITALS: BP 121/55
[2022-05-20] MEDS: ALBUTEROL SULF 2.5 MG/0.5ML(0.5%) NEB SOLN NEB SCH ×5 (06:25→23:12)
[2022-05-20] MEDS: IPRATROPIUM BROM 0.5 MG/2.5ML INH SOL NEB SCH ×5 (06:26→23:12)
[2022-05-20 09:00] VITALS: BP 141/76
[2022-05-20] MEDS: cefTRIAXone 1GM/50ML D5W 50 ML IV SCH (09:24)
[2022-05-20] MEDS: methylPREDNISolone SOD SUCC 125 MG/2 ML VL IV SCH ×2 (09:24→21:21)
[2022-05-20] MEDS: ENOXAPARIN SOD 40 MG/0.4 ML SYRINGE SC SCH (09:24)
[2022-05-20] MEDS: NICOTINE 14 MG/24HR TOPICAL PATCH TD SCH (09:25)
[2022-05-20] MEDS: AZITHROMYCIN 500MG/ 250ML 250 ML IV SCH (10:18)
[2022-05-20 13:00] VITALS: BP 141/82
[2022-05-20 17:00] VITALS: BP 139/93
[2022-05-21 05:00] VITALS: BP 152/97
[2022-05-21 05:27] VITALS: BP 138/83
[2022-05-21 08:29] VITALS: BP 126/79
[2022-05-21] MEDS: cefTRIAXone 1GM/50ML D5W 50 ML IV SCH (09:34)
[2022-05-21] MEDS: VANCOMYCIN 1GM/250ML 250 ML IV SCH (09:34)
[2022-05-21] MEDS: AZITHROMYCIN 500MG/ 250ML 250 ML IV SCH (10:40)
[2022-05-21] MEDS: methylPREDNISolone SOD SUCC 125 MG/2 ML VL IV SCH (10:40)
[2022-05-21] MEDS: ENOXAPARIN SOD 40 MG/0.4 ML SYRINGE SC SCH (10:40)
[2022-05-21] MEDS: NICOTINE 14 MG/24HR TOPICAL PATCH TD SCH (10:41)
[2022-05-21] MEDS: IPRATROPIUM BROM 0.5 MG/2.5ML INH SOL NEB SCH ×2 (11:42→11:43)
[2022-05-21] MEDS: ALBUTEROL SULF 2.5 MG/0.5ML(0.5%) NEB SOLN NEB SCH ×2 (11:42→11:43)
[2022-05-21] MEDS ORDERED: AZIT500T66 PO (12:20)
[2022-05-21] MEDS ORDERED: ALBUAER3 IN (12:20)
[2022-05-21 12:24] VITALS: BP 154/83
[2022-05-21 13:03] VITALS: BP 126/79
== END 2022-05-21 14:30 | disposition home health service (06) | DRG 720 ==
LOC: EDBD 08:23 → ER 08:23 → TELE 14:43 → TELE-WESTW 05-18 23:33
PROVIDERS: ADMIT Registered Nurse; ATTEND Family Medicine
DX: A41.89 Other specified sepsis (principal); J96.21 Acute and chronic respiratory failure with hypoxia; J69.0 Pneumonitis due to inhalation of food and vomit; J44.1 Chronic obstructive pulmonary disease with (acute) exacerbation; F03.90 Unspecified dementia, unspecified severity, without behavioral disturbance, psychotic disturbance, mood disturbance, and anxiety; F17.210 Nicotine dependence, cigarettes, uncomplicated; I10 Essential (primary) hypertension; J44.0 Chronic obstructive pulmonary disease with (acute) lower respiratory infection; Z20.822 Contact with and (suspected) exposure to COVID-19
CPT/HCPCS: 36415; 36600; 71045; 80053; 80061; 80202; 80307; 81001; 82805; 83036; 83880; 84443; 84484; 85025; 85379; 85610; 87040; 87077; 87186; 87426; 87804; 93005; 93306; 94640; 94644; 96365; 96368; 96375; 99291; G0378; J0330; J0696; J2250

== ENCOUNTER 2022-06-08 03:17 | Inpatient (IN) | payer MEDICARE, MEDICAID ==
[~2022-06-08] VITALS: Ht 165.1 cm; Wt 72.7 kg
[~2022-06-08 03:17] MED LIST changes: +ALBUAER3 IN; +AZIT500T66 PO
[2022-06-08 03:55] LABS: Basophils # (auto) 0 10 ^3/uL (0-0.2); Basophils % (auto) 0.3 % (0.0-2.0); Eosinophils # (auto) 0.5 10 ^3/uL (0-0.8); Eosinophils % (auto) 7.9 % (0.0-7.0); Hemoglobin 16.3 g/dL (13.5-17.5); Lymphocytes # (auto) 1.5 10 ^3/uL (0.4-5.4); Lymphocytes % (auto) 23.2 % (10.0-50.0); Mean Corpuscular Hgb Conc. 32.7 g/dL (32.0-36.0); Mean Corpuscular Volume 85.5 fL (80.0-100.0); Monocytes # (auto) 0.6 10 ^3/uL (0-1.3); Monocytes % (auto) 9.3 % (0.0-12.0); Neutrophils # (auto) 3.9 10 ^3/uL (1.6-8.6); Neutrophils % (auto) 59.3 % (37.0-80.0); Nucleated Red Blood Cells % 0.1 %; Red Blood Cells 5.84 10^6/uL (4.5-5.90); Red Cell Distribution Width 15.9 % (11.8-14.3); White Blood Cell 6.5 10^3/uL (4.4-10.8)
[2022-06-08 04:07] LABS: INR 0.97 (0.9-1.15); Partial Thromboplastin Time 27.9 sec (24.6-33.4)
[2022-06-08 04:12] LABS: Alanine Aminotransferase 34 U/L (16-61); Albumin 3.5 g/dL (3.4-5.0); Anion Gap 7 (5-15); Aspartate Aminotransferase 21 U/L (15-37); BUN/Creatinine Ratio 8.9; Blood Urea Nitrogen 10 mg/dL (7-18); Carbon Dioxide 26 mmol/L (21-32); Chloride 112 mmol/L (98-107); GFR African American 84 mL/min; GFR Non-African American 70 mL/min; Glucose 109 mg/dL (74-106); Magnesium 2.4 mg/dL (1.6-2.6); Potassium 4.7 mmol/L (3.5-5.1); Sodium 145 mmol/L (136-145)
[2022-06-08 04:15] LABS: Alkaline Phosphatase 123 U/L (45-117); Bilirubin, Total 0.4 mg/dL (0.2-1.0); Total Protein 6.9 g/dL (6.4-8.2)
[2022-06-08] MEDS ORDERED: methylPREDNISolone SOD SUCC 125 MG/2 ML VL IV ONE (07:30)
[2022-06-08] MEDS ORDERED: IPRATROPIUM BROM 0.5 MG/2.5ML INH SOL NEB ONE ×2 (07:30→17:45)
[2022-06-08] MEDS ORDERED: ALBUTEROL SULF 2.5 MG/0.5ML(0.5%) NEB SOLN NEB ONE ×2 (07:30→17:45)
[2022-06-08] MEDS ORDERED: cefTRIAXone 1GM/50ML D5W 50 ML IV ONE (08:00)
[2022-06-08] MEDS ORDERED: AZITHROMYCIN 500MG/ 250ML 250 ML IV ONE (08:00)
[2022-06-08] MEDS ORDERED: HYDROcodone-ACET 5/325MG TAB PO PRN (09:45)
[2022-06-08] MEDS ORDERED: ACETAMINOPHEN 325 MG TAB PO PRN (09:45)
[2022-06-08] MEDS ORDERED: SODIUM CHLORIDE 0.9% 1,000 ML IV ONE (09:45)
[2022-06-08] MEDS ORDERED: NITROGLYCERIN 0.4 MG SL TAB SL PRN (09:45)
[2022-06-08] MEDS ORDERED: MORPHINE SULFATE INJ 2 MG/ml SYRG IV PRN ×2 (09:45)
[2022-06-08] MEDS: NICOTINE 14 MG/24HR TOPICAL PATCH TD SCH (10:31)
[2022-06-08 10:59] LABS: Urine Bacteria FEW /hpf (None Seen); Urine Blood Negative /uL (Negative); Urine Mucus FEW (None Seen); Urine Specific Gravity 1.019 (1.001-1.035); Urine WBC 12 /hpf (0 - 3)
[2022-06-08] MEDS ORDERED: hydrALAZINE HCL 20 MG/ML VL IV PRN (11:00)
[2022-06-09] MEDS: ALBUTEROL SULF 2.5 MG/0.5ML(0.5%) NEB SOLN NEB SCH ×4 (00:35→13:10)
[2022-06-09] MEDS: IPRATROPIUM BROM 0.5 MG/2.5ML INH SOL NEB SCH ×4 (00:36→13:10)
[2022-06-09 01:57] VITALS: BP 170/86
[2022-06-09 06:48] LABS: Basophils # (auto) 0 10 ^3/uL (0-0.2); Basophils % (auto) 0.2 % (0.0-2.0); Eosinophils # (auto) 0.1 10 ^3/uL (0-0.8); Eosinophils % (auto) 0.5 % (0.0-7.0); Hematocrit 46.6 % (41.0-53.0); Hemoglobin 15.2 g/dL (13.5-17.5); Lymphocytes # (auto) 1.3 10 ^3/uL (0.4-5.4); Lymphocytes % (auto) 10.8 % (10.0-50.0); Mean Corpuscular Hemoglobin 27.7 pg (28.0-32.0); Mean Corpuscular Hgb Conc. 32.6 g/dL (32.0-36.0); Mean Corpuscular Volume 84.8 fL (80.0-100.0); Monocytes % (auto) 7.9 % (0.0-12.0); Neutrophils # (auto) 10.1 10 ^3/uL (1.6-8.6); Neutrophils % (auto) 80.6 % (37.0-80.0); Nucleated Red Blood Cells % 0.2 %; Red Blood Cells 5.49 10^6/uL (4.5-5.90); Red Cell Distribution Width 15.7 % (11.8-14.3); White Blood Cell 12.5 10^3/uL (4.4-10.8)
[2022-06-09] MEDS ORDERED: cefTRIAXone 1GM/50ML D5W 50 ML IV SCH (09:00)
[2022-06-09] MEDS ORDERED: AZITHROMYCIN 500MG/ 250ML 250 ML IV SCH (10:00)
[2022-06-09] MEDS: NICOTINE 14 MG/24HR TOPICAL PATCH TD SCH (11:02)
[2022-06-09] MEDS ORDERED: ALBUTEROL MEDNEB 2.5 mg/3ml NEB ONE (13:00)
[2022-06-09 13:38] VITALS: BP 138/83
[2022-06-09 14:58] LABS: Albumin 3.6 g/dL (3.4-5.0); Calcium 9.6 mg/dL (8.5-10.1); Potassium 4.6 mmol/L (3.5-5.1)
[2022-06-09 15:02] LABS: BUN/Creatinine Ratio 8.3; Bilirubin, Total 0.3 mg/dL (0.2-1.0); Total Protein 7.1 g/dL (6.4-8.2)
[2022-06-09] MEDS ORDERED: ALBUTEROL MEDNEB 2.5 mg/3ml NEB NEB SCH (18:00)
== END 2022-06-09 15:26 | disposition home or self-care (01) | DRG 139 ==
LOC: ER 03:17 → EDBD 03:17 → OVERFLOW 09:40
PROVIDERS: ADMIT Registered Nurse; ATTEND Student in an Organized Health Care Education/Training Program
DX: J18.9 Pneumonia, unspecified organism (principal); J96.01 Acute respiratory failure with hypoxia; J44.0 Chronic obstructive pulmonary disease with (acute) lower respiratory infection; I10 Essential (primary) hypertension; Z20.822 Contact with and (suspected) exposure to COVID-19; J44.1 Chronic obstructive pulmonary disease with (acute) exacerbation; Z79.01 Long term (current) use of anticoagulants; Z86.711 Personal history of pulmonary embolism; Z86.718 Personal history of other venous thrombosis and embolism; Z85.118 Personal history of other malignant neoplasm of bronchus and lung; Z71.6 Tobacco abuse counseling; F17.210 Nicotine dependence, cigarettes, uncomplicated
CPT/HCPCS: 36415; 71045; 80053; 81001; 83735; 83880; 84484; 85025; 85379; 85610; 85730; 87040; 87077; 87086; 87186; 87426; 87804; 93005; 94640; 96365; 96366; 96368; 96375; 99291; G0378; J0696